=== PATIENT | female | born 1930 | race Two or more races ===

== ENCOUNTER 2018-04-28 15:10 | Emergency (ER) | payer OTHER ==
[~2018-04-28] VITALS: Ht 167.6 cm; Wt 80.0 kg
[2018-04-28 16:34] LABS: BASOPHILS % 0.7 % (0.0-2.0); EOSINOPHILS % 1.3 % (0.0-5.0); HEMATOCRIT. 38.8 % (36.0-48.0); HEMOGLOBIN. 12.1 g/dL (12.0-16.0); LYMPHOCYTES % 22.5 % (20.0-50.0); MEAN CORPUSCULAR HEMOGLOBIN 22.3 pg (28.0-32.0); MEAN CORPUSCULAR VOLUME 71.5 fL (81.0-99.0); MEAN PLATELET VOLUME 7.8 fl (7.4-10.4); MONOCYTES % 11.2 % (2.0-8.0); NEUTROPHILS % 64.3 % (40.0-76.0); PLATELET 261 x1000/uL (130-400); RED BLOOD CELL COUNT 5.43 mill/uL (4.2-5.4); RED CELL DISTRIBUTION WIDTH 15.2 % (11.6-14.6)
[2018-04-28 16:36] LABS: CHLORIDE 100 mEq/L (98-107)
[2018-04-28] MEDS ORDERED: SODIUM CHLORIDE 0.9% 500 ML IV ONE (18:00)
[2018-04-28 20:53] VITALS: BP 162/65
== END 2018-04-28 21:19 | disposition short-term general hospital (02) ==
LOC: ER 15:10
DX: I44.2 Atrioventricular block, complete (principal); E86.0 Dehydration; R78.89 Finding of other specified substances, not normally found in blood; R00.1 Bradycardia, unspecified; E11.9 Type 2 diabetes mellitus without complications; J98.11 Atelectasis; Z88.2 Allergy status to sulfonamides
CPT/HCPCS: 36415; 71045; 80053; 83880; 84484; 85025; 93005; 96360; 96361; 99285; J7040